=== PATIENT | female | born 1955 | race Caucasian/White ===

== ENCOUNTER 2021-08-13 18:29 | Emergency (ER) | payer OTHER ==
[2021-08-13 19:06] VITALS: BP 159/93; PULSE 75; TEMP 98.5; BMI 17.2
[2021-08-13] MEDS ORDERED: SODIUM CHLORIDE 0.9% 500 ML INFUS.BAG IV ONE (20:19)
[2021-08-13] MEDS ORDERED: ACETAMINOPHEN 1000 MG/100 ML VIAL (NON FORMULARY) IVPB ONE (20:19)
[2021-08-13 20:23] LABS: BASO % 0.9 % (0-2.0); EOS % 1.2 % (0-4.5); HEMATOCRIT 38.2 % (32.4-45.2); LYMPH % 41.7 % (8-40); MCH 30.3 pg (25.7-33.7); MCHC 33.9 g/dl (32.0-36.0); MEAN CELL VOLUME 89.3 fl (80-96); MEAN PLT VOLUME 8.8 fl (7.5-11.1); NEUT % 47.2 % (42.8-82.8); PLATELET COUNT 190 10^3/uL (134-434); RBC 4.28 M/mm3 (3.60-5.2); RDW 13.5 % (11.6-15.6); WHITE BLOOD COUNT 5.3 K/mm3 (4.0-10.0)
[2021-08-13 20:30] LABS: PROTHROMBIN TIME (PATIENT) 12.1 SEC (9.7-13.0)
[2021-08-13 20:40] LABS: CHLORIDE 102 mmol/L (98-107); SODIUM 139 mmol/L (136-145)
[2021-08-13] MEDS ORDERED: ACETAMINOPHEN INJECTION 100 ML IVPB ONE (20:40)
[2021-08-13 20:42] LABS: ALBUMIN 4.7 g/dl (3.4-5.0); ANION GAP 6 MMOL/L (8-16); CALCIUM 9.5 mg/dL (8.5-10.1); CO2 31 mmol/L (21-32); GLUCOSE,RANDOM 88 mg/dL (74-106); LIPASE 95 U/L (73-393)
[2021-08-13 20:44] LABS: SGOT/AST 24 U/L (15-37); SGPT/ALT 23 U/L (13-61)
[2021-08-13 20:45] LABS: CREATININE 0.9 mg/dL (0.55-1.3)
[2021-08-13 20:46] LABS: BILIRUBIN,TOTAL 1.2 mg/dL (0.2-1); TOT PROT 8.1 g/dl (6.4-8.2)
[2021-08-13 20:48] LABS: ALK PHOS 82 U/L (45-117)
[2021-08-14 01:19] LABS: PH,URINE 6.5 (5.0-8.0); URINE APPEARANCE Clear; URINE BILIRUBIN Negative (NEGATIVE); URINE COLOR Yellow; URINE GLUCOSE (UA) Negative (NEGATIVE); URINE KETONE Negative (NEGATIVE); URINE LEUK ESTERASE Negative (NEGATIVE); URINE NITRITE Negative (NEGATIVE); URINE PROTEIN Negative (NEGATIVE); URINE UROBILINOGEN 0.2 mg/dL (0.2-1.0)
== END 2021-08-14 00:01 | disposition home or self-care (01) ==
LOC: JER 18:29
PROC: 3E033NZ Introduction of Analgesics, Hypnotics, Sedatives into Peripheral Vein, Percutaneous Approach (ICD-10-PCS; principal; 2021-08-13)
DX: R10.9 Unspecified abdominal pain (principal)
CPT/HCPCS: 36415; 74177-TC; 80053; 81003; 83605; 83690; 84484; 85025; 85610; 87086; 93005; 93010; 99285-25; C9803; J0131; Q9967; U0003; U0005

== ENCOUNTER 2025-01-21 20:57 | Emergency (ER) | payer OTHER ==
[2025-01-21 21:05] VITALS: BP 140/98; PULSE 82; RESP 20; TEMP 98.6; BMI 16.9
[2025-01-21] MEDS ORDERED: AMPICILLIN NA/SULBACTAM NA 1.5 GM VIAL ONE (21:42)
[2025-01-21] MEDS ORDERED: AMPICILLIN NA/SULBACTAM NA 3 GM/100 ML BAG IVPB ONE (21:44)
[2025-01-21] MEDS: AMPICILLIN NA/SULBACTAM NA 3 GM in SODIUM CHLORIDE 100 ML IVPB ONE (22:01)
[2025-01-21] MEDS ORDERED: IBUPROFEN 600 MG TABLET (FP) PO ONE (22:02)
[2025-01-21] MEDS: IBUPROFEN 600 MG TABLET (FP) PO ONE (22:04)
== END 2025-01-21 22:24 | disposition home or self-care (01) ==
LOC: JERFT 20:57
DX: S61.431A Puncture wound without foreign body of right hand, initial encounter (principal); W54.0XXA Bitten by dog, initial encounter
CPT/HCPCS: 73110-TC-RT-FY; 73130-TC-RT-FY; 96365; 99284-25